=== PATIENT | female | born 1940 | race Caucasian/White ===

== ENCOUNTER → 2019-01-27 | Outpatient (CLI) | payer MEDICARE, SELFPAY ==
[~2019-01-27] MED LIST: LIDOCAINE 2%/EPI 1:100,000 20 ML VIAL. IJ ONE
--- NOTE | 2019-01-31 10:07 | PATHOLOGY ---
[facility] Accession Number: [id number] . 01 Material submitted: . breast - RIGHT BREAST MASS, 4:30. Modifiers: right, 4:00 . 01 Clinical history: . Right breast mass . 02 Diagnosis: Breast tissue, right breast mass 4:30, needle biopsies: - Focal duct ectasia and cystic change with surrounding fibrosis and focal chronic inflammation. See comment. (JPM/db; 01/30/2019) QTP/01/30/2019 . 02 Comment: The specimen is examined at multiple levels. Microscopic sections primarily reveal fatty breast tissue. There are a few small foci of duct ectasia and cystic change with surrounding fibrosis and focal chronic inflammation. There is no evidence of malignancy. I am not certain as to whether or not the biopsy findings are industrial sales representative of the lesion. Please correlate with radiologic findings. (JPM:[facility] 01/30/2019) . 02 Electronically signed: . Jose Carlos Harris MD, Pathologist NPI- [id number] . 01 Gross description: . The specimen is received in formalin, labeled "Taryn Ashley, right breast 4:30". Received are multiple needle cores of fibrofatty tissue measuring 2.0 x 1.5 x 0.4 cm in aggregate dimensions. The specimen is submitted entirely in cassettes A1 through A3. The cold ischemic time is 2 minutes. The total formalin fixation time is 9 hours and 53 minutes. (CAA; 01/27/2019) QAC/QAC . 02 Pathologist provided ICD-10: N60.31, N60.41, N61.0 . 02 CPT . 780137 Specimen Comment: A courtesy copy of this report has been sent to Specimen Comment: [phone], . Specimen Comment: Report sent to / DR RICO Performed at: 01 [facility] [address], [place], [place] [id number] MD Tiburcio Hicks MD Phone: [phone] Performed at: 02 [facility] [address] [place], [place] [id number] MD Jose Carlos Harris MD Phone: [phone]
--- NOTE | 2019-01-31 11:54 | RAD ---
Ultrasound-guided right breast biopsy, 01/27/2019: History: Suspicious nodule Previous studies demonstrated a suspicious nodule at the 4:30 location in the right breast. Under local anesthesia, aseptic conditions and sonographic guidance the adaffix biopsy instrument was passed into the posterior aspect of this nodule via a medial approach. Multiple 12-gauge vacuum-assisted core samples were obtained. The lesion disappeared during the biopsy process. The materials were sent to pathology for evaluation. A biopsy marker was deposited at the biopsy site. The biopsy instrument was then removed and hemostasis obtained. Two-view postprocedural mammograms were then obtained to document position of the biopsy marker. The patient tolerated the procedure well and left the department in good condition. The subsequent pathology report indicated the presence of cystic change and fibrosis with chronic inflammation. The findings appear concordant. Follow-up right mammography in 6 months and bilateral mammography at one year is suggested.
--- NOTE | 2019-02-03 13:09 | RAD ---
Ultrasound-guided right breast biopsy, 01/27/2019: History: Suspicious nodule Previous studies demonstrated a suspicious nodule at the 4:30 location in the right breast. Under local anesthesia, aseptic conditions and sonographic guidance the [employer] biopsy instrument was passed into the posterior aspect of this nodule via a medial approach. Multiple 12-gauge vacuum-assisted core samples were obtained. The lesion disappeared during the biopsy process. The materials were sent to pathology for evaluation. A biopsy marker was deposited at the biopsy site. The biopsy instrument was then removed and hemostasis obtained. Two-view postprocedural mammograms were then obtained to document position of the biopsy marker. The patient tolerated the procedure well and left the department in good condition. The subsequent pathology report indicated the presence of cystic change and fibrosis with chronic inflammation. The findings appear concordant. Follow-up right mammography in 6 months and bilateral mammography at one year is suggested. DICTATED and SIGNED BY: FILIBERTO CLAROS MD DATE: 01/27/19 1111 MTDD
== END | disposition home or self-care (01) ==
LOC: US 09:48 → EDUNIT# 10:00
PROVIDERS: ATTEND Physician Assistant Medical
DX: N60.31 Fibrosclerosis of right breast (principal); N60.41 Mammary duct ectasia of right breast; N61.0 Mastitis without abscess; I10 Essential (primary) hypertension; Z88.2 Allergy status to sulfonamides
CPT/HCPCS: 19083; 77065; 88305; C1713; 19085; 76942